=== PATIENT | male | born 1970 ===

== ENCOUNTER 2017-05-31 10:48 | Emergency (ER) | payer MEDICAID, OTHER ==
[2017-05-31 12:21] VITALS: BP 141/92
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
== END 2017-05-31 13:23 | disposition home or self-care (01) ==
LOC: UCCORT 10:48
DX: L91.0 Hypertrophic scar (principal); R03.0 Elevated blood-pressure reading, without diagnosis of hypertension
CPT/HCPCS: 99211; G0463